=== PATIENT | female | born 1955 | race Caucasian/White ===

== ENCOUNTER 2024-08-08 09:46 | Day surgery (SDC) | payer MEDICARE, OTHER ==
[2024-08-07 10:05] VITALS: BP 142/91; PULSE 69; RESP 16; TEMP 98.6; O2SAT 96
[~2024-08-08] VITALS: Ht 160 cm; Wt 63.5 kg
[~2024-08-08 09:46] MED LIST: ACET-1008 PO; ALB0.5UD NEB; NICO-731 TOP
[2024-08-08] MEDS: famotidine 20mg tablet PO ONE (10:49)
[2024-08-08] MEDS: ceFAZolin 2gm in dextrose, iso 50 ML IV ONE (10:51)
[2024-08-08] MEDS: ringers solution, lacted 1,000 ML IV SCH ×2 (10:51→15:58)
[2024-08-08 10:59] LABS: BASOPHILS % (AUTO) 0.7 % (0-1); EOSINOPHILS # (AUTO) 0.1 X10'3 (0-0.9); EOSINOPHILS % (AUTO) 2.9 % (0-6); HEMATOCRIT 42.7 % (35.0-45.0); HEMOGLOBIN 14.3 g/dl (12.0-16.0); LYMPHOCYTES # (AUTO) 1.3 X10'3 (1.1-4.8); LYMPHOCYTES % (AUTO) 26.4 % (21-51); MEAN CORPUSCULAR HEMOGLOBIN 29.9 PG (27.0-31.0); MEAN CORPUSCULAR HGB CONC 33.4 g/dL (33.0-36.5); MEAN CORPUSCULAR VOLUME 89.5 FL (78-98); MEAN PLATELET VOLUME 8.7 FL (7.4-10.4); MONOCYTES # (AUTO) 0.4 X10'3 (0-0.9); MONOCYTES % (AUTO) 8.1 % (2-12); NEUTROPHILS # (AUTO) 3.1 X10'3 (1.8-7.7); NEUTROPHILS % (AUTO) 61.9 % (42-75); PLATELET COUNT 357 X10'3 (140-440); RED BLOOD COUNT 4.77 X10'6 (4.20-5.60); RED CELL DISTRIBUTION WIDTH 13.7 % (11.5-14.5)
[2024-08-08 11:19] LABS: ALANINE AMINOTRANSFERASE 20 U/L (12-78); ALBUMIN 3.4 G/DL (3.4-5.0); ALBUMIN/GLOBULIN RATIO 0.9 (1.1-1.5); ALKALINE PHOSPHATASE 104 IU/L (46-116); ASPARTATE AMINO TRANSFERASE 18 U/L (10-37); BILIRUBIN,TOTAL 1.2 MG/DL (0.1-1.0); BLOOD UREA NITROGEN 11 MG/DL (7-18); BUN/CREATININE RATIO 22.9 (10.0-20.0); CALCIUM 8.9 MG/DL (8.5-10.1); CREATININE 0.48 MG/DL (0.40-0.90); GLUCOSE 90 MG/DL (70-104); POTASSIUM 4.1 MMOL/L (3.5-5.1); SODIUM 141 MMOL/L (135-145); TOTAL CARBON DIOXIDE 26.9 MMOL/L (24-32); TOTAL PROTEIN 7.3 G/DL (6.4-8.2); eCRCL 93 ML/MIN; eGFR > 90 ML/MIN
[2024-08-08 11:23] LABS: ANION GAP 9 (8-16); CHLORIDE 105 MMOL/L (99-107)
[2024-08-08] MEDS ORDERED: acetaminophen 1,000mg/100ml IV 100 ML IV ONE (11:25)
[2024-08-08] MEDS ORDERED: proCHLORperazine 10 MG/2 ml inj IV PRN (11:25)
[2024-08-08] MEDS ORDERED: ondansetron/PF 4mg/2ml inj IV PRN (11:25)
[2024-08-08] MEDS ORDERED: meperidine/PF 25mg/ml syringe IV PRN ×3 (11:25)
[2024-08-08] MEDS ORDERED: morphine 4 MG/ML inj SYRINge IV PRN (11:25)
[2024-08-08] MEDS ORDERED: hydrALAZINE 20mg/ml inj. IV PRN (11:25)
[2024-08-08] MEDS ORDERED: labetalol 20mg/4ml (5mg/ml) syringe IV PRN (11:25)
[2024-08-08] MEDS ORDERED: LIDOcaine 1% (10mg/ml)w/preservative inj. 20ml MDV ONE (13:09)
[2024-08-08] MEDS ORDERED: BUPIVAcaine 2.5mg/ml inj 50ml vial (contains preservative) ONE (13:10)
[2024-08-08] MEDS: BUPIVAcaine/PF 2.5 mg/ml (0.25%) 30ml vial IJ ONE (13:54)
[2024-08-08] MEDS ORDERED: sevoflurane 250ml liquid IH ONE (13:57)
[2024-08-08] MEDS ORDERED: midazolam 1 mg/ML 2ml injection ONE (14:02)
[2024-08-08] MEDS ORDERED: fentaNYL /PF 50mcg/ml 5ml ampule ONE (14:14)
[2024-08-08] MEDS ORDERED: LIDOcaine 2% (20mg/ml) 5ml vial ONE (14:14)
[2024-08-08] MEDS ORDERED: rocuronium 10mg/ml inj IV ONE (14:14)
[2024-08-08] MEDS ORDERED: propofol inj 20 ML IV ONE (14:14)
[2024-08-08] MEDS ORDERED: dexamethasone sod phosphate 4mg/ml inj. ONE (14:14)
[2024-08-08] MEDS ORDERED: ondansetron/PF 4mg/2ml inj ONE (14:15)
[2024-08-08] MEDS ORDERED: 0.9 % SODIUM CHLORIDE 10 ML VIAL ONE (14:21)
[2024-08-08] MEDS ORDERED: ePHEDrine 50MG/ML INJ. ONE (14:21)
[2024-08-08] MEDS ORDERED: neostigmine methylsulfate 1 MG/ML 10ml vial ONE (15:21)
[2024-08-08] MEDS ORDERED: glycopyrrolate 0.2mg/ml inj ONE (15:21)
[2024-08-08] MEDS ORDERED: sugammadex 200mg/2ml injection IV ONE (15:24)
[2024-08-08 15:29] VITALS: BP 128/65; PULSE 112; RESP 16; O2SAT 98
[2024-08-08 15:40] VITALS: BP 119/74; PULSE 93; RESP 15; O2SAT 93
[2024-08-08 15:50] VITALS: BP 126/73; PULSE 90; RESP 18; O2SAT 94
[2024-08-08 16:00] VITALS: BP 123/69; PULSE 77; RESP 19; O2SAT 98
[2024-08-08] MEDS: morphine 2 MG/ML inj. syringe IV PRN (16:04)
[2024-08-08] MEDS: oxyCODONE/APAP 5-325mg tablet PO PRN (16:08)
[2024-08-08 16:10] VITALS: BP 124/78; PULSE 77; RESP 23; O2SAT 97
== END 2024-08-08 16:29 | disposition home or self-care (01) ==
LOC: PAS 09:46
PROVIDERS: ATTEND Surgery
DX: K40.20 Bilateral inguinal hernia, without obstruction or gangrene, not specified as recurrent (principal); K41.20 Bilateral femoral hernia, without obstruction or gangrene, not specified as recurrent; K43.2 Incisional hernia without obstruction or gangrene; K45.8 Other specified abdominal hernia without obstruction or gangrene; I45.10 Unspecified right bundle-branch block; J43.9 Emphysema, unspecified; I25.2 Old myocardial infarction; Z79.891 Long term (current) use of opiate analgesic; Z98.51 Tubal ligation status; Z98.890 Other specified postprocedural states; Z91.041 Radiographic dye allergy status
CPT/HCPCS: 36415; 49591; 49650; 49659; 80053; 82948; 85025; 93005; C1781; J0690; J1100; J2003; J2250; J2270; J2405; J2704; J2710; J3010; J3490; J7030; J7120; S2900; Z7506; Z7508; Z7512; A4215; A4615; A4618